=== PATIENT | male | born 1985 | race Caucasian/White ===

== ENCOUNTER 2016-05-16 13:21 | Inpatient (IN) | payer OTHER ==
--- NOTE | 2016-05-16 17:37 | HP ---
CIWA Score - CIWA Score Nausea/Vomitin-Int. Nausea w/Dry Heave Muscle Tremors: 3 Anxiety: 5 Agitation: 4-Moderately Restless Paroxysmal Sweats: 1-Minimal Palms Moist Orientation: 0-Oriented Tacttile Disturbances: 3-Moderate Itch/Numb/Burn Auditory Disturbances: 0-None Visual Disturbances: 0-None Headache: 1-Very Mild CIWA-Ar Total Score: 21 Admission ROS BHS - HPI Chief Complaint: DETOX TX FOR XANAX AND COCAINE DEPENDENCE SEEKING DETOX TX Allergies/Adverse Reactions: Allergies Allergy/AdvReac Type Severity Reaction Status Date / Time No Known Allergies Allergy Verified 05/16/16 16:42 History of Present Illness: 30 Y/O MALE WITH A HX OF COCAINE AND XANAX DEPENDENCE ON [facility]-MMTP SEEKING DETOX TX. PT STATES OVERDOSED ON HEROIN ON 05/13/16 AND WAS TAKEN TO [facility]. 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 Exam Limitations: No Limitations - Ebola screening Have you traveled outside of the country in the last 21 days: No Have you had contact with anyone from an Ebola affected area: No Have you been sick,other than usual withdrawal symptoms: No Do you have a fever: No - Review of Systems Constitutional: Chills, Night Sweats, Changes in sleep EENT: reports: Blurred Vision, Tearing, Recent change in vision, Dental Problems (CAVITIES IN THE PAST), Other (RUNNY NOSE) Respiratory: reports: Cough, Shortness of Breath (HX PNUEMONIA/BRONCHITIS) Cardiac: reports: Lightheadedness GI: reports: Nausea, Poor Fluid Intake, Vomiting, Abdominal cramping : reports: No Symptoms Reported Musculoskeletal: reports: Back Pain Integumentary: reports: Dryness Neuro: reports: Headache, Seizure (DUE TO XANAX USE WITHDRAWAL), Tremors, Unsteady Gait, Dizziness Endocrine: reports: No Symptoms Reported Hematology: reports: Anemia (IN THE PAST BUT RESOLVED) Psychiatric: reports: Orientated x3, Anxious, Depressed (NOT CURRENTLY ON MED) Other Systems: Reviewed and Negative Patient History - Patient Medical History Hx Anemia: Yes (NOT ON MED) Hx Asthma: No Hx Chronic Obstructive Pulmonary Disease (COPD): No Hx Cardiac Disorders: No Hx Hypertension: No Hx Hypercholesterolemia: No HX Cerebrovascular Accident: No Hx Seizures: Yes (xanax related last 2 months ago.) Hx Diabetes: No Hx Gastrointestinal Disorders: No Hx Genitourinary Disorders: No Hx Sexually Transmitted Disorders: No Hx Renal Disease (ESRD): No Hx Thyroid Disease: No Hx Human Immunodeficiency Virus (HIV): No (NEGATIVE HX) Hx Hepatitis C: Yes (NOT TREATED) Hx Depression: Yes (WAS ON WELLBUTRIN) Hx Suicide Attempt: No (DENIES) Hx Schizophrenia: No - Patient Surgical History Past Surgical History: No Hx Neurologic Surgery: No Hx Cataract Extraction: No Hx Cardiac Surgery: No Hx Lung Surgery: No Hx Breast Surgery: No Hx Breast Biopsy: No Hx Abdominal Surgery: No Hx Appendectomy: No Hx Cholecystectomy: No Hx Genitourinary Surgery: No Hx Orthopedic Surgery: No Anesthesia Reaction: No - PPD History Previous Implant?: Yes Documented Results: Negative w/o proof Implanted On Prior [facility] Admission?: No Date: 09/04/12 PPD to be Administered?: Yes - Reproductive History Patient is a Female of Child Bearing Age (11 -55 yrs old): No (MALE) - Smoking Cessation Smoking history: Current every day smoker Have you smoked in the past 12 months: Yes Aproximately how many cigarettes per day: 20 Cigars Per Day: 10 Hx Chewing Tobacco Use: No Initiated information on smoking cessation: Yes 'Breaking Loose' booklet given: 05/16/16 - Substance & Tx. History Hx Alcohol Use: No Hx Substance Use: Yes (XANAX/COCAINE/HEROIN) Substance Use Type: Cocaine, Heroin, Tranquilizers Hx Substance Use Treatment: Yes ([facility]-DETOX) - Substances Abused Alprazolam (Xanax) Route: Oral Frequency: Daily Amount used: 10 mg Age of first use: 18 Date of Last Use: 05/15/16 Cocaine Route: Injection Frequency: Daily Amount used: $50-100 Age of first use: 18 Date of Last Use: 05/15/16 Heroin Route: Injection Frequency: Daily Amount used: 5-6 BAGS Age of first use: 17 Date of Last Use: 05/15/16 Family Disease History - Family Disease History Family Disease History: Diabetes: Father (HTN;OPIOID ADDICTION), Brother Admission Physical Exam BHS - Vital Signs Vital Signs: Vital Signs - 24 hr 05/16/16 15:45 Temperature 96.8 F L Pulse Rate 58 L Respiratory 18 Rate Blood Pressure 103/50 - Physical General Appearance: Yes: Moderate Distress, Irritable, Anxious HEENTM: Yes: EOMI, Normocephalic, SHELDON, Pharynx Normal Respiratory: Yes: Chest Non-Tender, Lungs Clear, Normal Breath Sounds, No Respiratory Distress Neck: Yes: Supple, Trachea in good position Breast: Yes: Breast Exam Deferred Cardiology: Yes: Regular Rhythm, Regular Rate, S1, S2 Abdominal: Yes: Normal Bowel Sounds, Non Tender, Soft Genitourinary: Yes: Other (N/C) Back: Yes: Within Normal Limits Musculoskeletal: Yes: full range of Motion, Gait Steady Extremities: Yes: Normal Range of Motion, Non-Tender Neurological: Yes: physician support coordinator II-XII NML intact, Fully Oriented, Alert, Motor Strength 5/5 Integumentary: Yes: Dry, Warm, Track Luna (AND BLACK AND BLUE ON BOTH FOREARMS. ) Lymphatic: Yes: Within Normal Limits - Addiitonal Findings: DRESSING ON LEFT SIDE OF NECK..??CENTRAL LINE SITE. - Diagnostic (1) Sedative, hypnotic or anxiolytic dependence with withdrawal, uncomplicated Current Visit: Yes Status: Acute (2) Methadone maintenance therapy patient Current Visit: Yes Status: Chronic (3) Cocaine dependence, uncomplicated Current Visit: Yes Status: Acute (4) Hepatitis C Current Visit: Yes Status: Chronic Qualifiers: Viral hepatitis chronicity: chronic Hepatic coma status: without hepatic coma Qualified Code(s): B18.2 - Chronic viral hepatitis C Cleared for Admission [facility] - Detox or Rehab [facility] Level of Care: Medically Managed Detox Regimen/Protocol: Valium Claeared for Rehab Admission: No S Breath Alcohol Content Breath Alcohol Content: 0 Urine Drug Screen - Results Drug Screen Negative: No Urine Drug Screen Results: HUNG-Cocaine, BZO-Benzodiazepines, MTD-Methadone, TCA- Tricyclic Antidepress
[2016-05-16] MEDS ORDERED: P-EPHED 60MG/TRIPROLIDI 2.5MG TABLET PO PRN (17:56)
[2016-05-16] MEDS ORDERED: LOPERAMIDE HCL 2 MG CAPSULE PO PRN (17:56)
[2016-05-16] MEDS ORDERED: MENTHOL/PHENOL 1 EACH UD MM PRN (17:56)
[2016-05-16] MEDS ORDERED: NICOTINE 10 MG CARTRIDGE (INHALER) IH PRN (17:56)
[2016-05-16] MEDS ORDERED: MAGNESIUM CITRATE 300 ML BOTTLE PO PRN (17:56)
[2016-05-16] MEDS ORDERED: guaiFENesin/D-METHORPHAN HB 10 ML UNIT-DOSE CUPS PO PRN (17:56)
[2016-05-16] MEDS ORDERED: ACETAMINOPHEN 325 MG TABLET (FP) PO PRN (17:56)
[2016-05-16] MEDS ORDERED: IBUPROFEN 400 MG TABLET (FP) PO PRN (17:56)
[2016-05-16] MEDS ORDERED: MAGNESIUM HYDROX 2400MG/30ML ORAL SUSPENSION 30 ML CUP PO PRN (17:56)
[2016-05-16] MEDS ORDERED: MAG HYDROX/AL HYDROX/SIMETH 30 ML UNIT-DOSE CUP PO PRN (17:56)
[2016-05-16] MEDS ORDERED: diazePAM 5 MG TABLET PO ONE (18:45)
[2016-05-16] MEDS: NICOTINE 21 MG/24 HOURS TOPICAL PATCH TD SCH (19:07)
[2016-05-16 20:52] LABS: PH,URINE 7.5 (5.0-8.0); URINE APPEARANCE CLEAR; URINE BILIRUBIN NEGATIVE (NEGATIVE); URINE BLOOD NEGATIVE (NEGATIVE); URINE COLOR LT. YELLOW; URINE GLUCOSE (UA) NEGATIVE (NEGATIVE); URINE KETONE NEGATIVE (NEGATIVE); URINE LEUK ESTERASE NEGATIVE (NEGATIVE); URINE NITRITE NEGATIVE (NEGATIVE); URINE PROTEIN NEGATIVE (NEGATIVE); URINE UROBILINOGEN 0.2 E.U/dl E.U./dl (0.2-1.0)
[2016-05-16] MEDS: diazePAM 5 MG TABLET PO SCH (22:16)
[2016-05-16] MEDS: THIAMINE HCL 100 MG TABLET (FP) PO SCH (22:16)
[2016-05-16] MEDS: diphenhydrAMINE HCL 50 MG CAPSULE PO PRN (22:17)
[2016-05-17] MEDS: diazePAM 5 MG TABLET PO SCH ×3 (05:19→22:07)
[2016-05-17] MEDS: diazePAM 5 MG TABLET PO PRN ×3 (08:10→20:56)
[2016-05-17] MEDS ORDERED: METHADONE HCL 40 MG DISPERSABLE TABLET PO ONE (08:42)
[2016-05-17] MEDS: PRENATAL VITAMINS W/ FOLIC ACID TABLET (FP) PO SCH (10:06)
--- NOTE | 2016-05-17 10:06 | CONSULT ---
[facility] Psychiatric Consult - Data Date of interview: 05/17/16 Admission source: [facility] Identifying data: Readmission to [facility] for this 30 y/o male seeking detox treatment on for benzodiazepine,heroin and cocaine dependence.Patient is single without children,homeless,unemployed and supported on food stamps. Substance Abuse History: - Smoking Cessation. Smoking history: Current every day smoker. Have you smoked in the past 12 months: Yes. Aproximately how many cigarettes per day: 20. Cigars Per Day: 10. Hx Chewing Tobacco Use: No. Initiated information on smoking cessation: Yes. 'Breaking Loose' booklet given : 05/16/16. - Substance & Tx. History. Hx Alcohol Use: No. Hx Substance Use: Yes (XANAX/COCAINE/HEROIN). Substance Use Type: Cocaine, Heroin, Tranquilizers. Hx Substance Use Treatment: Yes ([facility]-DETOX). - Substances Abused. Alprazolam (Xanax). Route: Oral. Frequency: Daily. Amount used: 10 mg. Age of first use: 18. Date of Last Use: 05/15/16. Cocaine. Route: Injection. Frequency: Daily. Amount used: $50-100. Age of first use: 18. Date of Last Use: 05/15/16. Heroin. Route: Injection. Frequency: Daily. Amount used: 5-6 BAGS. Age of first use: 17. Date of Last Use: 05/15/16. Confirmed by patient. Medical History: Remarkable for hepatitis C,withdrawal seizures and anemia. Psychiatric History: Patient denies. Physical/Sexual Abuse/Trauma History: Patient denies. Additional Comment: Urine Drug Screen Results: HUNG-Cocaine, BZO-Benzodiazepines , MTD-Methadone, TCA-Tricyclic Antidepressant.Noted. Mental Status Exam - Mental Status Exam Alert and Oriented to: Time, Place, Person Cognitive Function: Good Patient Appearance: Well Groomed Mood: Nervous, Withdrawn Affect: Appropriate, Mood Congruent Patient Behavior: Fatigued, Talkative, Appropriate, Cooperative Speech Pattern: Clear Voice Loudness: Normal Thought Process: Goal Oriented Thought Disorder: Not Present Hallucinations: Denies Suicidal Ideation: Denies Homicidal Ideation: Denies Insight/Judgement: Poor Sleep: Fair Appetite: Good Muscle strength/Tone: Normal Gait/Station: Normal Psychiatric Findings - Problem List ([place] 1, 2,3) (1) Sedative, hypnotic or anxiolytic dependence with withdrawal, uncomplicated Current Visit: Yes Status: Acute (2) Opioid dependence on agonist therapy Current Visit: Yes Status: Acute (3) Nicotine dependence Current Visit: Yes Status: Acute (4) Substance induced mood disorder Current Visit: Yes Status: Acute (5) Cocaine dependence, uncomplicated Current Visit: Yes Status: Acute (6) Hepatitis C Current Visit: Yes Status: Chronic Qualifiers: Viral hepatitis chronicity: chronic Hepatic coma status: without hepatic coma Qualified Code(s): B18.2 - Chronic viral hepatitis C - Initial Treatment Plan Initial Treatment Plan: Psychoeducation.Detoxification.Insomnia is addressed with benadryl 100 mg po prn at bedtime.Patient agrees with plan.Observation.
[2016-05-17 10:08] LABS: MCH 29.6 pg (25.7-33.7); MCHC 33.9 g/dl (32.0-35.9); MEAN CELL VOLUME 87.2 fl (80-96); MEAN PLT VOLUME 8.9 fl (7.5-11.1); PLATELET COUNT 329 K/MM3 (134-434); RDW 13.9 % (11.9-15.9); WHITE BLOOD COUNT 10.5 K/mm3 (4.0-10.0)
[2016-05-17] MEDS: NICOTINE 21 MG/24 HOURS TOPICAL PATCH TD SCH (10:08)
[2016-05-17 10:39] LABS: ALBUMIN 3.9 g/dl (3.4-5.0); ALK PHOS 51 U/L (45-117); ANION GAP 8 (8-16); BILIRUBIN,TOTAL 0.2 mg/dL (0.2-1.0); CO2 29 mmol/L (21-32); GLUCOSE,RANDOM 91 mg/dL (74-106); SGOT/AST 19 U/L (15-37); SGPT/ALT 30 U/L (12-78); TOT PROT 7.5 g/dl (6.4-8.2)
[2016-05-17 10:50] LABS: HIV 1 & 2 AB NEGATIVE; HIV 1 AGp24 NEGATIVE
--- NOTE | 2016-05-17 12:01 | PN ---
[facility] CIWA - CIWA Score Nausea/Vomitin Muscle Tremors: 3 Anxiety: 3 Agitation: 3 Paroxysmal Sweats: 3 Orientation: 0-Oriented Tacttile Disturbances: 2-Mild Itch/Numbness/Burn Auditory Disturbances: 0-None Visual Disturbances: 0-None Headache: 0-None Present CIWA-Ar Total Score: 17 BHS Progress Note (SOAP) Subjective: interrupted sleep, sweats, nausea, lbp Objective: 05/17/16 11:59 Vital Signs Temperature 97.5 F L 05/17/16 09:24 Pulse Rate 71 05/17/16 09:24 Respiratory Rate 18 05/17/16 09:24 Blood Pressure 103/65 05/17/16 09:24 O2 Sat by Pulse Oximetry (%) Laboratory Tests 05/16/16 05/16/16 05/17/16 06:00 19:30 06:00 WBC 10.5 H RBC 4.75 Hgb 14.1 Hct 41.4 MCV 87.2 MCHC 33.9 RDW 13.9 Plt Count 329 D MPV 8.9 Sodium Potassium Chloride Carbon Dioxide Anion Gap BUN Creatinine Creat Clearance w eGFR Random Glucose Calcium Total Bilirubin AST ALT Alkaline Phosphatase Total Protein Albumin Urine Color Lt. yellow Urine Appearance Clear Urine pH 7.5 D Ur Specific [place] 1.015 Urine Protein Negative Urine Glucose (UA) Negative Urine Ketones Negative Urine Blood Negative Urine Nitrite Negative Urine Bilirubin Negative Urine Urobilinogen 0.2 e.u/dl Ur Leukocyte Esterase Negative RPR Titer HIV 1&2 Antibody Screen Negative HIV P24 Antigen Negative 05/17/16 05/17/16 06:00 06:00 WBC RBC Hgb Hct MCV MCHC RDW Plt Count MPV Sodium 139 Potassium 4.1 Chloride 102 Carbon Dioxide 29 Anion Gap 8 BUN 11 D Creatinine 1.0 Creat Clearance w eGFR > 60 Random Glucose 91 Calcium 9.0 Total Bilirubin 0.2 AST 19 D ALT 30 D Alkaline Phosphatase 51 Total Protein 7.5 Albumin 3.9 Urine Color Urine Appearance Urine pH Ur Specific Edwards Urine Protein Urine Glucose (UA) Urine Ketones Urine Blood Urine Nitrite Urine Bilirubin Urine Urobilinogen Ur Leukocyte Esterase RPR Titer Nonreactive HIV 1&2 Antibody Screen HIV P24 Antigen pt aox3 in nad ambulating 05/17/16 12:01 Assessment: 05/17/16 12:00 withdrawl sx;s Plan: cont. detox increase fluids
[2016-05-17] MEDS: NICOTINE POLACRILEX 4 MG GUM BUC PRN (13:19)
[2016-05-17] MEDS: diphenhydrAMINE HCL 50 MG CAPSULE PO PRN (22:07)
[2016-05-17] MEDS: THIAMINE HCL 100 MG TABLET (FP) PO SCH (22:07)
[2016-05-18] MEDS: METHADONE HCL 40 MG DISPERSABLE TABLET PO SCH (05:06)
[2016-05-18] MEDS: diazePAM 5 MG TABLET PO PRN ×3 (05:08→17:33)
[2016-05-18] MEDS: NICOTINE POLACRILEX 4 MG GUM BUC PRN ×3 (05:08→19:48)
[2016-05-18] MEDS: NICOTINE 21 MG/24 HOURS TOPICAL PATCH TD SCH (09:44)
[2016-05-18] MEDS: PRENATAL VITAMINS W/ FOLIC ACID TABLET (FP) PO SCH (09:44)
[2016-05-18] MEDS: hydrOXYzine PAMOATE 25 MG CAPSULE (FP) PO PRN ×2 (09:44→17:32)
[2016-05-18] MEDS: diazePAM 5 MG TABLET PO SCH ×2 (10:00→22:20)
--- NOTE | 2016-05-18 10:27 | EKG ---
Test Reason : Blood Pressure : / mmHG Vent. Rate : 059 BPM Atrial Rate : 059 BPM P-R Int : 142 ms QRS Dur : 084 ms QT Int : 446 ms P-R-T Axes : 044 078 045 degrees QTc Int : 441 ms SINUS BRADYCARDIA OTHERWISE NORMAL ECG NO PREVIOUS ECGS AVAILABLE Confirmed by JUSTO SANTANA, DAVID ([id number]) on 05/18/2016 10:27:07 AM Referred By: Confirmed By:DAVID KEMP MD
[2016-05-18] MEDS: THIAMINE HCL 100 MG TABLET (FP) PO SCH (22:20)
[2016-05-18] MEDS: diphenhydrAMINE HCL 50 MG CAPSULE PO PRN (22:20)
[2016-05-19] MEDS: diphenhydrAMINE HCL 50 MG CAPSULE PO PRN (01:49)
[2016-05-19] MEDS: diazePAM 5 MG TABLET PO PRN ×3 (01:50→12:35)
[2016-05-19] MEDS: METHADONE HCL 40 MG DISPERSABLE TABLET PO SCH (05:13)
--- NOTE | 2016-05-19 09:36 | PN ---
Psychiatric Progress Note Vital Signs: Vital Signs Period Temp Pulse Resp BP Sys/Barbour Pulse Ox Last 24 Hr 97 F-98.1 F 54-64 16-20 100-134/54-76 Date of Session: 05/19/16 Chief Complaint:: Insomnia HPI: Patient reports taking Anbien 10mg po qhs prior to admission for insomnia Current Medications: Active Medications Generic Name Dose Route Start Last Admin Trade Name Freq PRN Reason Stop Dose Admin Acetaminophen 650 mg 05/16/16 17:56 Tylenol - PO Q4H PRN FEVER OR PAIN Al Hydroxide/Mg Hydroxide 30 ml 05/16/16 17:56 Mylanta Oral Suspension - PO Q6H PRN DYSPEPSIA Diazepam 10 mg 05/16/16 17:56 05/19/16 06:36 Valium - PO 05/19/16 17:55 10 mg Q4H PRN Administration WITHDRAWAL(CONT SUBST) Diazepam 5 mg 05/18/16 10:00 05/18/16 22:20 Valium - PO 05/19/16 22:01 5 mg BID KIERRA Administration Diazepam 5 mg 05/20/16 10:00 Valium - PO 05/20/16 10:01 DAILY KIERRA Diphenhydramine HCl 50 mg 05/16/16 22:00 05/19/16 01:49 Benadryl - PO 50 mg HSMR1 PRN Administration INSOMNIA Eucalyptus/Menthol/Phenol/Sorbitol 1 each 05/16/16 17:56 Cepastat Lozenge - MM Q4H PRN SORE THROAT Guaifenesin 10 ml 05/16/16 17:56 Robitussin Dm - PO Q6H PRN COUGH Hydroxyzine Pamoate 25 mg 05/16/16 17:56 05/18/16 17:32 Vistaril - PO 25 mg Q4H PRN Administration AGITATION Ibuprofen 400 mg 05/16/16 17:56 Motrin - PO Q6H PRN SEVERE PAIN Loperamide HCl 4 mg 05/16/16 17:56 Imodium - PO Q6H PRN DIARRHEA Magnesium Citrate 300 ml 05/16/16 17:56 Citroma - PO Q48H PRN CONSTIPATION Magnesium Hydroxide 30 ml 05/16/16 17:56 Milk Of Magnesia - PO DAILY PRN CONSTIPATION Methadone HCl 40 mg 05/18/16 06:00 05/19/16 05:13 Dolophine - PO 05/24/16 05:59 40 mg DAILY@0600 KIERRA Administration Nicotine 10 mg 05/16/16 17:56 Nicotrol Inhaler - IH Q2H PRN NICOTINE REPLACEMENT RX Nicotine 21 mg 05/16/16 18:00 05/18/16 09:44 Nicoderm Patch - TD 21 mg DAILY KIERRA Administration Nicotine Polacrilex 4 mg 05/17/16 12:45 05/18/16 19:48 Nicorette Gum - BUC 4 mg Q2H PRN Administration NICOTINE REPLACEMENT RX Multivit/Folic Acid/Iron 1 tab 05/17/16 10:00 05/18/16 09:44 Vitamins (Sjr) - PO 1 tab DAILY KIERRA Administration Pseudoephedrine/Triprolidine 1 combo 05/16/16 17:56 Actifed - PO TID PRN NASAL CONGESTION Thiamine HCl 100 mg 05/16/16 22:00 05/18/16 22:20 Vitamin B1 - PO 100 mg HS KIERRA Administration Zolpidem Tartrate 10 mg 05/19/16 09:32 Ambien - PO HS PRN INSOMNIA Medication(s) Change(s): Anbien 10mg po qhs Mental Status Exam - Mental Status Exam Alert and Oriented to: Person Cognitive Function: Fair Patient Appearance: Unkempt Mood: Anxious Affect: Mood Congruent Patient Behavior: Cooperative Speech Pattern: Excessive Voice Loudness: Mildly Loud Thought Process: Goal Oriented Thought Disorder: Being Controlled Hallucinations: Denies Suicidal Ideation: Denies Homicidal Ideation: Denies Insight/Judgement: Fair Sleep: Difficulty falling asleep Appetite: Weight gain Muscle strength/Tone: Normal Gait/Station: Normal Additional Comments: Anbien 10mg po qhs Psychiatric Treatment Plan - Problem List (1) Cocaine dependence, uncomplicated Current Visit: Yes (2) Nicotine dependence Current Visit: Yes (3) Opioid dependence on agonist therapy Current Visit: Yes (4) Sedative, hypnotic or anxiolytic dependence with withdrawal, uncomplicated Current Visit: Yes (5) Substance induced mood disorder Current Visit: Yes (6) Methadone maintenance therapy patient Current Visit: Yes Initial treatment plan: Anbien 10mg po qhs
--- NOTE | 2016-05-19 09:40 | PN ---
BHS Progress Note (SOAP) Subjective: interrupted sleep, sweats, headache Objective: 05/19/16 09:40 Vital Signs Temperature 97.7 F 05/19/16 05:47 Pulse Rate 61 05/19/16 05:47 Respiratory Rate 16 05/19/16 05:47 Blood Pressure 106/69 05/19/16 05:47 O2 Sat by Pulse Oximetry (%) Laboratory Tests 05/16/16 05/16/16 05/17/16 06:00 19:30 06:00 WBC 10.5 H RBC 4.75 Hgb 14.1 Hct 41.4 MCV 87.2 MCHC 33.9 RDW 13.9 Plt Count 329 D MPV 8.9 Sodium Potassium Chloride Carbon Dioxide Anion Gap BUN Creatinine Creat Clearance w eGFR Random Glucose Calcium Total Bilirubin AST ALT Alkaline Phosphatase Total Protein Albumin Urine Color Lt. yellow Urine Appearance Clear Urine pH 7.5 D Ur Specific [place] 1.015 Urine Protein Negative Urine Glucose (UA) Negative Urine Ketones Negative Urine Blood Negative Urine Nitrite Negative Urine Bilirubin Negative Urine Urobilinogen 0.2 e.u/dl Ur Leukocyte Esterase Negative RPR Titer HIV 1&2 Antibody Screen Negative HIV P24 Antigen Negative 05/17/16 05/17/16 06:00 06:00 WBC RBC Hgb Hct MCV MCHC RDW Plt Count MPV Sodium 139 Potassium 4.1 Chloride 102 Carbon Dioxide 29 Anion Gap 8 BUN 11 D Creatinine 1.0 Creat Clearance w eGFR > 60 Random Glucose 91 Calcium 9.0 Total Bilirubin 0.2 AST 19 D ALT 30 D Alkaline Phosphatase 51 Total Protein 7.5 Albumin 3.9 Urine Color Urine Appearance Urine pH Ur Specific [place] Urine Protein Urine Glucose (UA) Urine Ketones Urine Blood Urine Nitrite Urine Bilirubin Urine Urobilinogen Ur Leukocyte Esterase RPR Titer Nonreactive HIV 1&2 Antibody Screen HIV P24 Antigen 05/19/16 14:30 pt aox3 in nad ambulating Assessment: 05/19/16 09:40 withdrawl sx;s s 05/19/16 14:30 Plan: cont. detox increase fluids motrin prn
[2016-05-19] MEDS: PRENATAL VITAMINS W/ FOLIC ACID TABLET (FP) PO SCH (10:14)
[2016-05-19] MEDS: diazePAM 5 MG TABLET PO SCH ×2 (10:14→22:17)
[2016-05-19] MEDS: NICOTINE 21 MG/24 HOURS TOPICAL PATCH TD SCH (10:15)
[2016-05-19] MEDS: NICOTINE POLACRILEX 4 MG GUM BUC PRN (10:17)
[2016-05-19] MEDS ORDERED: ZOLPIDEM TARTRATE 10 MG TABLET (PARK CARE ONLY) PO PRN (22:00)
[2016-05-19] MEDS: THIAMINE HCL 100 MG TABLET (FP) PO SCH (22:17)
[2016-05-20] MEDS: METHADONE HCL 40 MG DISPERSABLE TABLET PO SCH (07:29)
[2016-05-20] MEDS: NICOTINE POLACRILEX 4 MG GUM BUC PRN (07:33)
[2016-05-20] MEDS: hydrOXYzine PAMOATE 25 MG CAPSULE (FP) PO PRN (08:49)
--- NOTE | 2016-05-20 09:04 | PN ---
S Progress Note (SOAP) Subjective: ALERT,NO COMPLAINT Objective: 05/20/16 09:03 Vital Signs Temperature 97.3 F L 05/20/16 06:16 Pulse Rate 58 L 05/20/16 06:16 Respiratory Rate 12 05/20/16 06:16 Blood Pressure 115/72 05/20/16 06:16 O2 Sat by Pulse Oximetry (%) Assessment: 05/20/16 09:03 DETOX COMPLETED,NO WITHDRAWAL SYMPTOM Plan: DISCHARGE TODAY,FOLLOW UP WITH AFTER CARE PROGRAM ARRANGEMENT
--- NOTE | 2016-05-20 09:06 | DS ---
[facility] Detox Discharge Summary Admission Date: 05/16/16 Discharge Date: 05/20/16 - History Present History: Cocaine Dependence, Sedative Dependence, MMTP Additional Comments: FOLLOW UP WITH AFTER CARE PROGRAM ARRANGEMENT Pertinent Past History: MMTP - Physical Exam Results Vital Signs: Vital Signs Temperature 97.3 F L 05/20/16 06:16 Pulse Rate 58 L 05/20/16 06:16 Respiratory Rate 12 05/20/16 06:16 Blood Pressure 115/72 05/20/16 06:16 O2 Sat by Pulse Oximetry (%) Pertinent Admission Physical Exam Findings: WITHDRAWAL SYMPTOM - Treatment Hospital Course: Detox Protocol Followed, Detoxed Safely, Responded well, Discharged Condition Good Patient has Accepted a Rehab Referral to: [facility] - Medication Discharge Medications: Ambulatory Orders Zolpidem Tartrate [Ambien] 10 mg PO HS PRN #14 tablet MDD 10 05/19/16 - AMA Did Patient Leave Against Medical Advice: No
[2016-05-20 09:59] VITALS: BP 142/97; PULSE 77; TEMP 97.7
[2016-05-20] MEDS ORDERED: diazePAM 5 MG TABLET PO SCH (10:00)
[2016-05-20] MEDS: PRENATAL VITAMINS W/ FOLIC ACID TABLET (FP) PO SCH (10:21)
[2016-05-20] MEDS: NICOTINE 21 MG/24 HOURS TOPICAL PATCH TD SCH (11:22)
== END 2016-05-20 11:36 | disposition home or self-care (01) | DRG 773 ==
LOC: YASAS 13:21 → Y6N 18:12
PROVIDERS: ADMIT Internal Medicine Addiction Medicine; ATTEND Internal Medicine Addiction Medicine
PROC: HZ2ZZZZ Detoxification Services for Substance Abuse Treatment (ICD-10-PCS; principal; 2016-05-16)
DX: F13.230 Sedative, hypnotic or anxiolytic dependence with withdrawal, uncomplicated (principal); F11.20 Opioid dependence, uncomplicated; F14.20 Cocaine dependence, uncomplicated; F17.210 Nicotine dependence, cigarettes, uncomplicated; F19.24 Other psychoactive substance dependence with psychoactive substance-induced mood disorder; G47.00 Insomnia, unspecified; B18.2 Chronic viral hepatitis C; Z86.69 Personal history of other diseases of the nervous system and sense organs; Z86.2 Personal history of diseases of the blood and blood-forming organs and certain disorders involving the immune mechanism
CPT/HCPCS: 36415; 80053; 81003; 85027; 86593; 87389; 93005; 93010

== ENCOUNTER 2022-06-09 17:18 | Inpatient (IN) | payer OTHER ==
[2022-06-09 17:55] VITALS: BMI 27.4
[2022-06-09] MEDS ORDERED: POLYETHYLENE GLYCOL (HEALTHYLAX) 3350 17 GM PACKET PO PRN (20:09)
[2022-06-09] MEDS ORDERED: MAGNESIUM HYDROX 2400MG/30ML ORAL SUSPENSION 30 ML CUP PO PRN (20:09)
[2022-06-09] MEDS ORDERED: LOPERAMIDE HCL 2 MG CAPSULE PO PRN (20:09)
[2022-06-09] MEDS ORDERED: P-EPHED 60MG/TRIPROLIDI 2.5MG TABLET PO PRN (20:09)
[2022-06-09] MEDS ORDERED: BENZOCAINE/MENTHOL (CHLORASEPTIC ) LOZENGE MM PRN (20:09)
[2022-06-09] MEDS ORDERED: MAG HYDROX/AL HYDROX/SIMETH 30 ML UNIT-DOSE CUP PO PRN (20:09)
[2022-06-09] MEDS ORDERED: guaiFENesin 200 MG/10 ML 10 ML UNIT-DOSE CUPS PO PRN (20:09)
[2022-06-09] MEDS ORDERED: ACETAMINOPHEN 325 MG TABLET (FP) PO PRN (20:09)
[2022-06-10] MEDS ORDERED: TUBERCULIN PPD 5 TU/0.1ML VIAL ID ONE ×2 (00:55→04:11)
[2022-06-10] MEDS: CEPHALEXIN MONOHYDRATE 500 MG CAPSULE (UD) PO SCH ×4 (00:57→17:28)
[2022-06-10] MEDS: THIAMINE HCL 100 MG TABLET (FP) PO SCH ×2 (00:57→21:51)
[2022-06-10] MEDS: MELATONIN 5 MG TABLETS PO SCH ×2 (01:01→21:51)
[2022-06-10] MEDS: PRENATAL VITAMINS W/ FOLIC ACID TABLET (FP) PO SCH (09:38)
[2022-06-10] MEDS ORDERED: methaDONE HCL 10 MG TABLET PO SCH (10:45)
[2022-06-10 11:17] LABS: HEMATOCRIT 40.7 % (35.4-49); HEMOGLOBIN 13.7 GM/dL (11.7-16.9); MCH 28.6 pg (25.7-33.7); MCHC 33.5 g/dl (32.0-35.9); MEAN CELL VOLUME 85.3 fl (80-96); MEAN PLT VOLUME 7.8 fl (7.5-11.1); PLATELET COUNT 417 10^3/uL (134-434); RBC 4.78 M/mm3 (4.00-5.60); WHITE BLOOD COUNT 8.3 K/mm3 (4.0-10.0)
[2022-06-10 11:24] LABS: CALCIUM 9.6 mg/dL (8.5-10.1)
[2022-06-10 11:25] LABS: ALBUMIN 3.6 g/dl (3.4-5.0); BLOOD UREA NITROGEN 23.6 mg/dL (7-18)
[2022-06-10 11:30] LABS: BILIRUBIN,TOTAL 0.2 mg/dL (0.2-1); TOT PROT 7.7 g/dl (6.4-8.2)
[2022-06-10 11:37] LABS: URINE APPEARANCE CLEAR; URINE BILIRUBIN NEGATIVE (NEGATIVE); URINE COLOR YELLOW; URINE GLUCOSE (UA) NEGATIVE (NEGATIVE); URINE KETONE NEGATIVE (NEGATIVE); URINE LEUK ESTERASE NEGATIVE (NEGATIVE); URINE NITRITE NEGATIVE (NEGATIVE); URINE PROTEIN NEGATIVE (NEGATIVE); URINE UROBILINOGEN 0.2 mg/dL (0.2-1.0)
[2022-06-11] MEDS: CEPHALEXIN MONOHYDRATE 500 MG CAPSULE (UD) PO SCH ×6 (00:25→23:56)
[2022-06-11] MEDS: PRENATAL VITAMINS W/ FOLIC ACID TABLET (FP) PO SCH (10:23)
[2022-06-11] MEDS: THIAMINE HCL 100 MG TABLET (FP) PO SCH (22:32)
[2022-06-11] MEDS: MELATONIN 5 MG TABLETS PO SCH (22:32)
[2022-06-12] MEDS: CEPHALEXIN MONOHYDRATE 500 MG CAPSULE (UD) PO SCH ×4 (06:40→23:24)
[2022-06-12] MEDS: PRENATAL VITAMINS W/ FOLIC ACID TABLET (FP) PO SCH (10:35)
[2022-06-12] MEDS: MELATONIN 5 MG TABLETS PO SCH (21:27)
[2022-06-12] MEDS: THIAMINE HCL 100 MG TABLET (FP) PO SCH (21:27)
[2022-06-13] MEDS: CEPHALEXIN MONOHYDRATE 500 MG CAPSULE (UD) PO SCH ×3 (06:59→17:47)
[2022-06-13] MEDS: PRENATAL VITAMINS W/ FOLIC ACID TABLET (FP) PO SCH (10:50)
[2022-06-13] MEDS: IBUPROFEN 400 MG TABLET (FP) PO PRN (14:04)
[2022-06-13] MEDS: MELATONIN 5 MG TABLETS PO SCH (23:07)
[2022-06-13] MEDS: THIAMINE HCL 100 MG TABLET (FP) PO SCH (23:07)
[2022-06-14] MEDS: CEPHALEXIN MONOHYDRATE 500 MG CAPSULE (UD) PO SCH ×5 (00:01→23:26)
[2022-06-14] MEDS: PRENATAL VITAMINS W/ FOLIC ACID TABLET (FP) PO SCH (10:55)
[2022-06-14] MEDS: IBUPROFEN 400 MG TABLET (FP) PO PRN (16:27)
[2022-06-14] MEDS: THIAMINE HCL 100 MG TABLET (FP) PO SCH (21:36)
[2022-06-14] MEDS: MELATONIN 5 MG TABLETS PO SCH (21:36)
[2022-06-15] MEDS: CEPHALEXIN MONOHYDRATE 500 MG CAPSULE (UD) PO SCH ×4 (06:11→23:11)
[2022-06-15] MEDS: PRENATAL VITAMINS W/ FOLIC ACID TABLET (FP) PO SCH (11:10)
[2022-06-15] MEDS: MELATONIN 5 MG TABLETS PO SCH (21:27)
[2022-06-15] MEDS: THIAMINE HCL 100 MG TABLET (FP) PO SCH (21:27)
[2022-06-16] MEDS: CEPHALEXIN MONOHYDRATE 500 MG CAPSULE (UD) PO SCH ×4 (06:36→23:22)
[2022-06-16] MEDS: PRENATAL VITAMINS W/ FOLIC ACID TABLET (FP) PO SCH (10:26)
[2022-06-16] MEDS: THIAMINE HCL 100 MG TABLET (FP) PO SCH (21:35)
[2022-06-16] MEDS: MELATONIN 5 MG TABLETS PO SCH (21:35)
[2022-06-17] MEDS: CEPHALEXIN MONOHYDRATE 500 MG CAPSULE (UD) PO SCH ×4 (06:09→23:12)
[2022-06-17] MEDS: PRENATAL VITAMINS W/ FOLIC ACID TABLET (FP) PO SCH (10:20)
[2022-06-17] MEDS: MELATONIN 5 MG TABLETS PO SCH (21:29)
[2022-06-17] MEDS: THIAMINE HCL 100 MG TABLET (FP) PO SCH (21:29)
[2022-06-18] MEDS: PRENATAL VITAMINS W/ FOLIC ACID TABLET (FP) PO SCH (10:30)
[2022-06-18] MEDS: MELATONIN 5 MG TABLETS PO SCH (21:07)
[2022-06-18] MEDS: THIAMINE HCL 100 MG TABLET (FP) PO SCH (21:07)
[2022-06-19] MEDS: PRENATAL VITAMINS W/ FOLIC ACID TABLET (FP) PO SCH (10:21)
[2022-06-19] MEDS: MELATONIN 5 MG TABLETS PO SCH (21:41)
[2022-06-19] MEDS: THIAMINE HCL 100 MG TABLET (FP) PO SCH (21:41)
[2022-06-20] MEDS: PRENATAL VITAMINS W/ FOLIC ACID TABLET (FP) PO SCH (11:00)
[2022-06-20] MEDS: THIAMINE HCL 100 MG TABLET (FP) PO SCH (21:22)
[2022-06-20] MEDS: MELATONIN 5 MG TABLETS PO SCH (21:22)
[2022-06-21] MEDS: PRENATAL VITAMINS W/ FOLIC ACID TABLET (FP) PO SCH (10:08)
[2022-06-21] MEDS: MELATONIN 5 MG TABLETS PO SCH (21:25)
[2022-06-21] MEDS: THIAMINE HCL 100 MG TABLET (FP) PO SCH (21:25)
[2022-06-22] MEDS: PRENATAL VITAMINS W/ FOLIC ACID TABLET (FP) PO SCH (10:21)
[2022-06-22] MEDS: MELATONIN 5 MG TABLETS PO SCH (22:09)
[2022-06-22] MEDS: THIAMINE HCL 100 MG TABLET (FP) PO SCH (22:09)
[2022-06-23 06:57] VITALS: BP 119/75; PULSE 65; RESP 16; TEMP 97.8
== END 2022-06-23 09:09 | disposition home or self-care (01) | DRG 772 ==
LOC: YASAS 17:18 → Y3W 23:59
PROVIDERS: ADMIT Allergy & Immunology; ATTEND Allergy & Immunology
PROC: HZ42ZZZ Group Counseling for Substance Abuse Treatment, Cognitive-Behavioral (ICD-10-PCS; principal; 2022-06-09)
DX: F10.20 Alcohol dependence, uncomplicated (principal); F11.20 Opioid dependence, uncomplicated; F15.20 Other stimulant dependence, uncomplicated; F19.24 Other psychoactive substance dependence with psychoactive substance-induced mood disorder; F41.9 Anxiety disorder, unspecified; F32.A Depression, unspecified; Z86.69 Personal history of other diseases of the nervous system and sense organs; Z86.19 Personal history of other infectious and parasitic diseases; Z56.0 Unemployment, unspecified; Z59.00 Homelessness unspecified
CPT/HCPCS: 36415; 80053; 81003; 85027; 86780; 93005; 93010; C9803-CS; U0003; U0005

== ENCOUNTER 2023-09-14 14:31 | Inpatient (IN) | payer OTHER ==
[2023-09-14 15:51] VITALS: BMI 27.6
[2023-09-14] MEDS ORDERED: ONDANSETRON *ODT* 4 MG TABLET SL PRN (16:26)
[2023-09-14] MEDS ORDERED: POLYETHYLENE GLYCOL (HEALTHYLAX) 3350 17 GM PACKET PO PRN (16:26)
[2023-09-14] MEDS ORDERED: NALOXONE HCL (KLOXXADO) 8 MG SPRAY NS PRN (16:26)
[2023-09-14] MEDS ORDERED: IBUPROFEN 400 MG TABLET (FP) PO PRN (16:26)
[2023-09-14] MEDS ORDERED: BENZOCAINE/MENTHOL (CHLORASEPTIC ) LOZENGE MM PRN (16:26)
[2023-09-14] MEDS ORDERED: BENZONATATE 200 MG CAPSULE PO PRN (16:26)
[2023-09-14] MEDS ORDERED: MAG HYDROX/AL HYDROX/SIMETH 30 ML UNIT-DOSE CUP PO PRN (16:26)
[2023-09-14] MEDS ORDERED: MAGNESIUM HYDROX 2400MG/30ML ORAL SUSPENSION 30 ML CUP PO PRN (16:26)
[2023-09-14] MEDS ORDERED: DICYCLOMINE HCL 10 MG CAPSULE PO PRN (16:26)
[2023-09-14] MEDS ORDERED: ACETAMINOPHEN 325 MG TABLET (FP) PO PRN (16:26)
[2023-09-14] MEDS ORDERED: BISMUTH SUBSALICYLATE 524 MG/30 ML PO PRN (16:26)
[2023-09-14] MEDS ORDERED: guaiFENesin 600 MG TABLET.ER (FP) PO PRN (16:26)
[2023-09-14] MEDS ORDERED: NALOXONE HCL 0.4 MG/ML VIAL IM PRN (16:26)
[2023-09-14] MEDS ORDERED: IBUPROFEN 600 MG TABLET (FP) PO PRN (16:26)
[2023-09-14] MEDS ORDERED: LOPERAMIDE HCL 2 MG CAPSULE PO PRN (16:26)
[2023-09-14] MEDS ORDERED: PRENATAL VITAMINS W/ FOLIC ACID TABLET (FP) PO ONE (17:09)
[2023-09-14] MEDS: PRENATAL VITAMINS W/ FOLIC ACID TABLET (FP) PO SCH (17:15)
[2023-09-14] MEDS: diazePAM 5 MG TABLET PO PRN (18:06)
[2023-09-14] MEDS: MELATONIN 5 MG TABLETS PO SCH (22:54)
[2023-09-14] MEDS: diazePAM 5 MG TABLET PO SCH (22:54)
[2023-09-14] MEDS: THIAMINE 100 MG TABLET PO SCH (22:54)
[2023-09-15] MEDS ORDERED: methaDONE HCL 10 MG TABLET PO ONE ×2 (08:57→09:26)
[2023-09-15 12:27] LABS: HEMATOCRIT 42.5 % (35.4-49); HEMOGLOBIN 14.5 GM/dL (11.7-16.9); MCH 28.2 pg (25.7-33.7); MCHC 34.1 g/dl (32.0-35.9); MEAN CELL VOLUME 82.9 fl (80-96); MEAN PLT VOLUME 8.3 fl (7.5-11.1); PLATELET COUNT 221 10^3/uL (134-434); RBC 5.13 M/mm3 (4.00-5.60); RDW 13.7 % (11.9-15.9); WHITE BLOOD COUNT 5.7 K/mm3 (4.0-10.0)
[2023-09-15 12:54] LABS: POTASSIUM 4.5 mmol/L (3.5-5.1)
[2023-09-15 13:03] LABS: BLOOD UREA NITROGEN 13.2 mg/dL (7-18); CALCIUM 8.8 mg/dL (8.5-10.1)
[2023-09-15 13:06] LABS: BILIRUBIN,TOTAL 0.2 mg/dL (0.2-1)
[2023-09-15 13:07] LABS: TOT PROT 6.2 g/dl (6.4-8.2)
[2023-09-15] MEDS: GABAPENTIN 100 MG CAPSULE PO SCH (14:01)
[2023-09-15] MEDS: METHOCARBAMOL 500 MG TABLET PO PRN (22:17)
[2023-09-15] MEDS: PRAZOSIN HCL 1 MG CAPSULE PO SCH (22:17)
[2023-09-15] MEDS: hydrOXYzine PAMOATE 25 MG CAPSULE (FP) PO PRN (22:17)
[2023-09-15] MEDS: MIRTAZAPINE 15 MG TABLET (FP) PO SCH (22:19)
[2023-09-16] MEDS ORDERED: methaDONE HCL 10 MG TABLET PO ONE (06:00)
[2023-09-16] MEDS ORDERED: methaDONE HCL 10 MG TABLET PO SCH (06:00)
[2023-09-16] MEDS: diazePAM 5 MG TABLET PO SCH (06:04)
[2023-09-17] MEDS: diazePAM 5 MG TABLET PO SCH (05:57)
[2023-09-17] MEDS ORDERED: methaDONE HCL 10 MG TABLET PO ONE (06:00)
[2023-09-17] MEDS: METHADONE PO ONE (10:26)
[2023-09-18] MEDS ORDERED: methaDONE HCL 10 MG TABLET PO ONE (06:00)
[2023-09-18] MEDS: diazePAM 5 MG TABLET PO ONE (06:07)
[2023-09-18] MEDS: METHADONE PO ONE (09:22)
[2023-09-19] MEDS ORDERED: methaDONE HCL 10 MG TABLET PO ONE (06:00)
[2023-09-20] MEDS ORDERED: methaDONE HCL 10 MG TABLET PO ONE (06:00)
[2023-09-20 09:21] VITALS: BP 127/73; PULSE 75; RESP 16; TEMP 98
[2023-09-21] MEDS ORDERED: methaDONE HCL 40 MG DISPERSABLE TABLET PO SCH (06:00)
== END 2023-09-20 10:37 | disposition home or self-care (01) | DRG 773 ==
LOC: YASAS 14:31 → Y6N 16:36
PROVIDERS: ADMIT Allergy & Immunology; ATTEND Psychiatry & Neurology Pain Medicine
PROC: HZ2ZZZZ Detoxification Services for Substance Abuse Treatment (ICD-10-PCS; principal; 2023-09-14)
DX: F13.230 Sedative, hypnotic or anxiolytic dependence with withdrawal, uncomplicated (principal); F11.20 Opioid dependence, uncomplicated; F14.20 Cocaine dependence, uncomplicated; F15.20 Other stimulant dependence, uncomplicated; F17.210 Nicotine dependence, cigarettes, uncomplicated; G40.909 Epilepsy, unspecified, not intractable, without status epilepticus; B18.2 Chronic viral hepatitis C; Z86.19 Personal history of other infectious and parasitic diseases; Z86.59 Personal history of other mental and behavioral disorders; Z62.810 Personal history of physical and sexual abuse in childhood
CPT/HCPCS: 36415; 80053; 80305; 80307; 85027; 86593; 86780; 93005; 93010